=== PATIENT | male | born 1965 | race Caucasian/White ===

== ENCOUNTER 2017-07-02 17:01 | Emergency (ER) | payer OTHER ==
[~2017-07-02] VITALS: Ht 172.7 cm; Wt 249.5 kg
[2017-07-02] MEDS ORDERED: ELIQUIS2.5 MG PO (17:10)
[2017-07-02] MEDS ORDERED: LASIX 20 MG TAB20 MG PO (17:10)
[2017-07-02] MEDS ORDERED: PACERONE 200 M200 M1 PO (17:10)
[2017-07-02] MEDS ORDERED: SYNTHROID175 MCG PO (17:10)
[2017-07-02] MEDS ORDERED: LISINOPRIL10 MG PO (17:11)
[2017-07-02] MEDS ORDERED: ZOCOR20 MG PO (17:11)
[2017-07-02] MEDS ORDERED: IBUPROFEN 800800 M1 PO (17:32)
== END 2017-07-02 17:54 | disposition home or self-care (01) ==
LOC: ER 17:01
DX: S93.401A Sprain of unspecified ligament of right ankle, initial encounter (principal); I11.0 Hypertensive heart disease with heart failure; I50.9 Heart failure, unspecified; Z87.891 Personal history of nicotine dependence; W01.0XXA Fall on same level from slipping, tripping and stumbling without subsequent striking against object, initial encounter; Y93.89 Activity, other specified; Y92.89 Other specified places as the place of occurrence of the external cause; Y99.8 Other external cause status